=== PATIENT | female | born 1990 | race Caucasian/White ===

== ENCOUNTER 2017-09-15 18:25 | Emergency (ER) | payer MEDICAID, SELFPAY ==
--- NOTE | 2017-09-15 18:47 | HMH.EDUROGF ---
ED Disposition Clinical Impression: First trimester , complicated by Suboxone maintenance, antepartum, UTI (urinary tract infection) Disposition: Home, Self-Care Condition on Discharge: Fair Instructions: DI for Chronic Pain -- Adult Additional Instructions: 1- follow up with subxone clinic untill switched to subutex. 2- pnv daily. 3- call dr perea for care. Prescriptions: Nitrofurantoin Monohyd/M-Cryst [Macrobid 100 mg Capsule] 100 mg PO Q12 #14 cap Referrals: Johnny Shah MD [Staff Physician] - - Critical Care Critical Care Time: No Attestation: On 09/15/17, the high probability of a clinically significant, sudden or life threatening deterioration of the following system(s) required my full and direct attention, intervention and personal management. The time I documented below is in addition to time spent performing reported procedures but includes the following listed in this critical care notation. Medical Decision Making - Medical Records Medical records reviewed: Yes: I reviewed the patient's medical records. Vital Signs: 09/15/17 18:51 Temperature 99.0 F Temperature Source Oral Pulse Rate [Right Brachial] 89 Respiratory Rate 18 Blood Pressure [Right Arm] 153/71 Blood Pressure Mean [Right Arm] 98 Blood Pressure Source [Right Arm] Automatic Cuff Blood Pressure Position [Right Arm] Sitting 02 Sat by Pulse Oximetry 99 Oxygen Delivery Method Room Air - Lab Data Lab Results 09/15/17 18:50: Urine Color Yellow, Urine Appearance Clear, Urine pH 6.0, Ur Specific [place] 1.010, Urine Protein Negative, Urine Glucose (UA) Negative, Urine Ketones Negative, Urine Blood Negative, Urine Nitrate Negative, Urine Bilirubin Negative, Urine Urobilinogen 0.2, Ur Leukocyte Esterase Negative, Urine RBC Occasional, Urine WBC None, Ur Squamous Epith Cells 10-20, Urine Bacteria 1+ 09/15/17 18:50: Urine HCG, Qual Positive - Jayjay Inquiry Pt receiving controlled substance: No Jayjay was queried for this patient: No Medical Decision Making Narrative: Patient was notified that she is positive test. She requested a proof, she would be given a copy of her test result. She is advised to continue Suboxone until she switches Subutex. Dr. Hope is her supervisor opening and picking and she will contact him for care. 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 Onset (ago): day(s) (6 Days) Quality: sharp (Suprapubic. ) Duration: intermittent Relieving factors: none Exacerbating factors: none Sexual activity: yes : unsure Last Menstrual Period: 08/09/17 EDC: 05/16/18 Associated symptoms: denies other symptoms - Related Data : 3 Para: 1 (The patient had 2 D&Cs) A: 2 Previous Rx's Medication Instructions Recorded Nitrofurantoin Monohyd/M-Cryst 100 mg PO Q12 #14 cap 09/15/17 [Macrobid 100 mg Capsule] Allergies Allergy/AdvReac Type Severity Reaction Status Date / Time INGREDIENT: NO KNOWN - NO Allergy Unknown Uncoded 07/19/17 14:50 KNOWN DRUG ALLERGY NKDA Allergy Unknown Uncoded 07/19/17 14:50 [facility] History I have reviewed the patient's past medical history: Yes ROS Obtained: Yes All systems reviewed & no additional complaints Physical Exam - General General appearance: alert, in no apparent distress - Head Head exam: atraumatic, normocephalic, normal inspection - Eye Eye exam: Present: normal appearance, PERRL, EOMI - ENT ENT exam: Present: normal exam, normal oropharynx, mucous membranes moist, TM's normal bilaterally, normal external ear exam - Neck Neck exam: Present: normal inspection, full ROM, trachea midline. Absent: meningismus, lymphadenopathy - Chest Chest inspection: Present: normal inspec
[2017-09-15 18:51] VITALS: BP 153/71; PULSE 89; RESP 18; TEMP 37.2; O2SAT 99; BMI 27.4
--- NOTE | 2017-09-15 18:51 | ED_ITS ---
ED Disposition Clinical Impression: First trimester , complicated by Suboxone maintenance, antepartum, UTI (urinary tract infection) Disposition: Home, Self-Care Condition on Discharge: Fair Instructions: DI for Chronic Pain -- Adult Additional Instructions: 1- follow up with subxone clinic untill switched to subutex. 2- pnv daily. 3- call dr perea for care. Prescriptions: Nitrofurantoin Monohyd/M-Cryst [Macrobid 100 mg Capsule] 100 mg PO Q12 #14 cap Referrals: Johnny Shah MD [Staff Physician] - - Critical Care Critical Care Time: No Attestation: On 09/15/17, the high probability of a clinically significant, sudden or life threatening deterioration of the following system(s) required my full and direct attention, intervention and personal management. The time I documented below is in addition to time spent performing reported procedures but includes the following listed in this critical care notation. Medical Decision Making - Medical Records Medical records reviewed: Yes: I reviewed the patient's medical records. Vital Signs: 09/15/17 18:51 Temperature 99.0 F Temperature Source Oral Pulse Rate [Right Brachial] 89 Respiratory Rate 18 Blood Pressure [Right Arm] 153/71 Blood Pressure Mean [Right Arm] 98 Blood Pressure Source [Right Arm] Automatic Cuff Blood Pressure Position [Right Arm] Sitting 02 Sat by Pulse Oximetry 99 Oxygen Delivery Method Room Air - Lab Data Lab Results 09/15/17 18:50: Urine Color Yellow, Urine Appearance Clear, Urine pH 6.0, Ur Specific [place] 1.010, Urine Protein Negative, Urine Glucose (UA) Negative, Urine Ketones Negative, Urine Blood Negative, Urine Nitrate Negative, Urine Bilirubin Negative, Urine Urobilinogen 0.2, Ur Leukocyte Esterase Negative, Urine RBC Occasional, Urine WBC None, Ur Squamous Epith Cells 10-20, Urine Bacteria 1+ 09/15/17 18:50: Urine HCG, Qual Positive - Jayjay Inquiry Pt receiving controlled substance: No Jayjay was queried for this patient: No Medical Decision Making Narrative: Patient was notified that she is positive test. She requested a proof , she would be given a copy of her test result. She is advised to continue Suboxone until she switches Subutex. Dr. Hope is her route deliverer and she will contact him for care. 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 Onset (ago): day(s) (6 Days) Quality: sharp (Suprapubic. ) Duration: intermittent Relieving factors: none Exacerbating factors: none Sexual activity: yes : unsure Last Menstrual Period: 08/09/17 EDC: 05/16/18 Associated symptoms: denies other symptoms - Related Data : 3 Para: 1 (The patient had 2 D&Cs) A: 2 Previous Rx's Medication Instructions Recorded Nitrofurantoin Monohyd/M-Cryst 100 mg PO Q12 #14 cap 09/15/17 [Macrobid 100 mg Capsule] Allergies Allergy/AdvReac Type Severity Reaction Status Date / Time INGREDIENT: NO KNOWN - NO Allergy Unknown Uncoded 07/19/17 14:50 KNOWN DRUG ALLERGY NKDA Allergy Unknown Uncoded 07/19/17 14:50 [facility] History
[2017-09-15 18:57] LABS: Microscopic, Urine URINE MICROSCOPIC (MICROSCOPIC)
[2017-09-15 18:59] LABS: Appearance,Urine CLEAR (Clear); Bilirubin,Urine Negative (Negative); Blood, Urine Negative (Negative); Color,Urine YELLOW (Yellow); Glucose,Urine (UA) Negative (Negative); Ketones,Urine Negative (Negative); Leukocyte Esterase,Urine Negative (Negative); Nitrate,Urine Negative (Negative); Protein,Urine Negative (Negative); Urobilinogen,Urine 0.2 EU/dl (0.2)
[2017-09-15 19:01] LABS: Urine Pregnancy, HCG Qual. Positive (Negative)
[2017-09-15 19:07] LABS: Bacteria,Urine 1+ /lpf; RBC,Urine Occasional #/hpf (0-3)
[2017-09-15 20:50] VITALS: BP 00/00; PULSE 80; RESP 18; TEMP 36.7; O2SAT 97
== END 2017-09-15 20:50 | disposition home or self-care (01) ==
PROVIDERS: Emergency Provider Emergency Medicine
DX: O99.321 Drug use complicating pregnancy, first trimester (principal); F11.20 Opioid dependence, uncomplicated; N39.0 Urinary tract infection, site not specified
CPT/HCPCS: 81001; 81025; 99281

== ENCOUNTER → 2017-09-19 09:22 | Outpatient (CLI) | payer MEDICAID, SELFPAY ==
[2017-09-19 10:10] LABS: Basophils % 0.3 % (0.1-2.0); Eosinophils # 0.1 K/mm3 (0.0-0.4); Eosinophils % 1.5 % (0.1-12.0); Hematocrit 41.3 % (37.0-47.0); Hemoglobin 13.8 g/dL (12.2-16.2); Lymphocytes # 1.9 K/mm3 (0.7-4.5); Lymphocytes % 34.1 K/mm3 (10-50); Mean Corpuscular HGB Conc 33.5 g/dL (31.8-35.4); Mean Corpuscular Hemoglobin 29.8 pg (27.0-31.2); Mean Platelet Volume 8.7 fl (7.4-10.4); Monocytes # 0.3 K/mm3 (0.1-1.0); Monocytes % 4.9 % (1.7-9.3); Neutrophils # 3.4 K/mm3 (1.8-7.8); Neutrophils % 59.2 % (37.0-80.0); Platelet Count 229 K/mm3 (142-424); Red Blood Count 4.64 M/mm3 (4.20-5.40); Red Cell Distribution Width 13.2 % (11.5-17.5); White Blood Count 5.7 K/mm3 (4.8-10.8)
[2017-09-20 08:21] LABS: HIV Screen 4th Generation wRfx Non Reactive (Non Reactive)
[2017-09-21 06:40] LABS: Hepatitis B Surface Antigen Negative (Negative); Hepatitis C Antibody <0.1 s/co ratio (0.0-0.9); Rapid Plasma Reagin Ab Titer Non Reactive (NonRea<1:1); Rubella Antibodies, IgG 5.76 index (Immune >0.99)
== END ==
PROVIDERS: PCP Internal Medicine Adolescent Medicine; Visit Provider Nurse Practitioner Obstetrics & Gynecology
DX: Z34.90 Encounter for supervision of normal pregnancy, unspecified, unspecified trimester (principal)
CPT/HCPCS: 36415; 85025; 86592; 86703; 86762; 86850; 87340; 87380; G0432

== ENCOUNTER → 2017-09-26 08:51 | Outpatient (CLI) | payer MEDICAID, SELFPAY ==
--- NOTE | 2017-09-26 08:55 | US_ITS ---
US OB transvaginal Ordering Physician: Johnny Shah MD Patient Age: 26 years: Female HISTORY: ITS.REASON: DATES early early OB evaluation. TECHNIQUE: Transvaginal pelvic ultrasound COMPARISON :None FINDINGS Single intrauterine gestation . 2. Early to identify a heart flicker. scar noted lower uterine segment anteriorly Gestational sac to the superior endometrium gestational sac size 1.22 = 5.3 weeks Small Yolk sac is identified measuring 0.27 cm. [place]-rump vaguely identified. CRL = 0.16 cm Cervix long closed Small yolk sac is identified Right ovary 2.6 x 1.4 x 1.7 cm Left ovary 2.8 x 2.55 cm. Only some question a tiny follicles both right left ovary. Trace fluid in cul-de-sac. Noted by technologist IMPRESSION: ...... Single intrauterine gestation.- However to early and small to identify heart flicker.. Gestational sac size of. 5.3 weeks . Ovaries appear satisfactory. Minimal trace fluid at cul-de-sac
== END ==
PROVIDERS: PCP Internal Medicine Adolescent Medicine; Visit Provider Nurse Practitioner Obstetrics & Gynecology
DX: O26.841 Uterine size-date discrepancy, first trimester (principal)
CPT/HCPCS: 76830

== ENCOUNTER → 2017-10-03 09:16 | Outpatient (CLI) | payer MEDICAID, SELFPAY ==
--- NOTE | 2017-10-03 09:22 | US_ITS ---
US OB transvaginal HISTORY: Early OB ultrasound for date ITS.REASON: US OB- Dates ORDERING PHYSICIAN: Johnny Shah MD PATIENT AGE: 26 years COMPARISON: None FINDINGS: An intrauterine gestational sac is present with a pole with a crown-rump length of 0. 66cm correlating to gestational age of 6w4d. On this comparison gestational age of 6 weeks 3 days based on LMP of 08/19/2017 heart tones are present with heart rate of 132 bpm's. Yolk sac identified 0.53 cm. The amnion and chorion have not yet fused. The cervix appears long and closed Adnexa: The ovaries appear normal size with normal flow. No dominant cyst Only small follicles are seen at the periphery of both right left ovary. No well defined corpus luteum cyst. right ovary 2.8 x 1.4 x 2.15 cm left ovary 3.3 x 1.7 x 1.5 cm. IMPRESSION======== : Single viable intrauterine gestation pelvic activity identified and documented 6 weeks 4 days = CRL and average ultrasound age.. Minimal fluid in cul-de-sac noted . Ovaries with normal limits. Tiny follicles noted bilaterally
== END ==
PROVIDERS: PCP Internal Medicine Adolescent Medicine; Visit Provider Nurse Practitioner Obstetrics & Gynecology
DX: O26.841 Uterine size-date discrepancy, first trimester (principal)
CPT/HCPCS: 76830

== ENCOUNTER → 2017-10-10 14:31 | Outpatient (CLI) | payer MEDICAID, SELFPAY ==
--- NOTE | 2017-10-10 14:33 | US_ITS ---
US OB transvaginal Ordering Physician: Johnny Shah MD Patient Age: 26 years: Female HISTORY: ITS.REASON: spotting and cramping in early TECHNIQUE: Single viable intrauterine early gestation. COMPARISON :Spotting cramping. 10/03/2017 early ultrasound. FINDINGS Single progressing viable exiting gestation. Progression of the gestation since the previous 10/03/2017 exam pole is identified with cardiac activity, with yolk sac image . Average ultrasound age = 7 weeks 3 days. Excellent gestational age based on LMP 7 weeks 3 days. Yolk sac 5.2 mm. CRL 1.2 cm = 7 weeks 3 days. Heart rate 146 BPM. And documented Ovaries appear normal in size with no dominant cyst. Right ovary 2.35 x 1.3 x 2.1 cm. Left ovary 3 x 2.4 x 2.5 cm. Scattered small cysts about the margin of both ovaries. Right ovary. A few small scattered follicles at margin of right ovary Note is made of a small amount of fluid the cul-de-sac fluid pocket here measuring up to 2.3 cm length x 0.78 cm x 2.2 cm. IMPRESSION: Single viable progressing intrauterine gestation. 7 weeks 3 days = [place]-Rump Length & Average Ultrasound Age.
== END ==
PROVIDERS: PCP Internal Medicine Adolescent Medicine; Visit Provider Nurse Practitioner Obstetrics & Gynecology
DX: O26.859 Spotting complicating pregnancy, unspecified trimester (principal); O26.899 Other specified pregnancy related conditions, unspecified trimester
CPT/HCPCS: 76830

== ENCOUNTER 2017-10-24 12:05 | Emergency (ER) | payer MEDICAID, SELFPAY ==
[2017-10-24 12:10] VITALS: BP 118/88; PULSE 80; RESP 16; TEMP 37.7; O2SAT 97; BMI 21.9
--- NOTE | 2017-10-24 12:19 | US_ITS ---
US OB transvaginal HISTORY: ITS.REASON: 9 WEEKS PREG BLEEDING ORDERING PHYSICIAN: Mauricio Delarosa MD PATIENT AGE: 26 years COMPARISON: None FINDINGS: An intrauterine gestational sac is present with a pole with a crown-rump length of 2.2 cmcm correlating to gestational age of 8 weeks 6 days. heart tones were not demonstrated. Yolk sac is demonstrated. A small area of fluid echogenicity is present along the lower aspect of the subchorionic area at 6 mm. No adnexal mass. IMPRESSION: Intrauterine gestation once again noted with a crown-rump length of 2.2 cm correlating to gestational age of 8 weeks 6 days. No heart tones however are demonstrated. Nonviable gestation
[2017-10-24 12:43] LABS: Microscopic, Urine URINE MICROSCOPIC (MICROSCOPIC)
[2017-10-24 12:44] LABS: Appearance,Urine CLOUDY (Clear); Blood, Urine Negative (Negative); Color,Urine YELLOW (Yellow); Glucose,Urine (UA) Negative (Negative); Ketones,Urine TRACE (Negative); Leukocyte Esterase,Urine Negative (Negative); Nitrate,Urine Negative (Negative); PH,Urine 6.5 (5.0-8.5); Protein,Urine TRACE (Negative); Urobilinogen,Urine 0.2 EU/dl (0.2)
[2017-10-24 12:46] LABS: Basophils % 0.4 % (0.1-2.0); Eosinophils # 0.1 K/mm3 (0.0-0.4); Eosinophils % 1.9 % (0.1-12.0); Hemoglobin 12.5 g/dL (12.2-16.2); Lymphocytes % 39.2 K/mm3 (10-50); Mean Corpuscular HGB Conc 33.8 g/dL (31.8-35.4); Mean Corpuscular Volume 88.8 fl (81-99); Mean Platelet Volume 8.4 fl (7.4-10.4); Monocytes # 0.2 K/mm3 (0.1-1.0); Monocytes % 4.4 % (1.7-9.3); Neutrophils # 2.7 K/mm3 (1.8-7.8); Platelet Count 209 K/mm3 (142-424); Red Blood Count 4.17 M/mm3 (4.20-5.40); Red Cell Distribution Width 13.1 % (11.5-17.5); White Blood Count 5.1 K/mm3 (4.8-10.8)
[2017-10-24 13:01] LABS: Bacteria,Urine 2+ /lpf; Bilirubin,Urine Negative (Negative); Mucus,Urine 2+ /lpf; Squamous Epithelial Cell,Urine Occasional #/hpf (0-5); WBC,Urine Occasional #/hpf (0-3)
--- NOTE | 2017-10-24 13:03 | HMH.EDPREG ---
ED Disposition Clinical Impression: Incomplete miscarriage Disposition: Home, Self-Care Condition on Discharge: Good Instructions: DI for Miscarriage Additional Instructions: Please call dr. Shah's office and schedule a follow up appointment, at your earliest convenience. Referrals: Johnny Shah MD [Staff Physician] - Forms: Work/School Release Time of Disposition: 13:05 - Critical Care Critical Care Time: No Attestation: On 10/24/17, the high probability of a clinically significant, sudden or life threatening deterioration of the following system(s) required my full and direct attention, intervention and personal management. The time I documented below is in addition to time spent performing reported procedures but includes the following listed in this critical care notation. Medical Decision Making - Medical Records Medical records reviewed: Yes: I reviewed the patient's medical records. - Jayjay Inquiry Pt receiving controlled substance: No Vital Signs: 10/24/17 12:10 10/24/17 13:20 Temperature 99.9 F H 98.9 F Temperature Source Oral Oral Pulse Rate 60 Pulse Rate [Right Radial] 80 Respiratory Rate 16 20 Blood Pressure 114/73 Blood Pressure [Right Arm] 118/88 Blood Pressure Mean [Right Arm] 98 Blood Pressure Source Automatic Cuff Blood Pressure Source [Right Arm] Manual Cuff/ Palpation Blood Pressure Position Sitting Blood Pressure Position [Right Arm] Sitting 02 Sat by Pulse Oximetry 97 Oxygen Delivery Method Room Air Room Air - Lab Data Lab Results 10/24/17 12:25: Urine Color Yellow, Urine Appearance Cloudy, Urine pH 6.5, Ur Specific [place] 1.020, Urine Protein Trace, Urine Glucose (UA) Negative, Urine Ketones Trace, Urine Blood Negative, Urine Nitrate Negative, Urine Bilirubin Negative, Urine Urobilinogen 0.2, Ur Leukocyte Esterase Negative, Urine WBC Occasional, Ur Squamous Epith Cells Occasional, Urine Bacteria 2+, Urine Mucus 2+ 10/24/17 12:33: WBC 5.1, RBC 4.17 L, Hgb 12.5, Hct 37.0, MCV 88.8, MCH 30.0, MCHC 33.8, RDW 13.1, Plt Count 209, MPV 8.4, Neut % (Auto) 54.0, Lymph % (Auto) 39.2, [place] % (Auto) 4.4, Eos % (Auto) 1.9, Baso % (Auto) 0.4, Neut # (Auto) 2.7, Lymph # (Auto) 2.0, [place] # (Auto) 0.2, Eos # (Auto) 0.1, Baso # (Auto) 0.0 10/24/17 12:33: Sodium 140, Potassium 3.8, Chloride 105, Carbon Dioxide 28, Anion Gap 7.5, BUN 5 L, Creatinine 0.47 L, Estimated Creat Clear 156, Estimated GFR 160, Est GFR ( Amer) 194, Glucose 93, Calcium 9.0, Total Bilirubin 0.2, AST 19, ALT 21, Alkaline Phosphatase 78, Total Protein 7.3, Albumin 3.7, Globulin 3.6 H, Albumin/Globulin Ratio 1.0 L, HCG, Quant [id number] Result diagrams: 10/24/17 12:33 10/24/17 12:33 Orders (Tests/Meds): ORDERS Category Date Time Status Urine Culture Stat Micro 10/24/17 12:25 Results - US Data US Images: Pelvis ED US Reviewed: Yes: I have reviewed the patient's US results, I have viewed radiologist's interpretation Findings Narrative: [address] [facility] [address] [place] [address] Ultrasound Report Signed Patient: Kiara Hubbard MR#: [id number] : 1990 Acct:[id number] Age/Sex: 26 / F ADM Date: 10/24/17 Loc: ER Attending Dr: Ordering Physician: Mauricio Delarosa MD Date of Service: 10/24/17 Procedure(s): US OB transvaginal Accession Number(s): [id number] cc: Isidro Baumann MD; Yasir Joya MD~ US OB transvaginal HISTORY: ITS.REASON: 9 WEEKS PREG BLEEDING ORDERING PHYSICIAN: Mauricio Delarosa MD PATIENT AGE: 26 years COMPARISON: None FINDINGS: An intrauterine gestational sac is present with a pole with a crown-rump length of 2.2 cmcm correlating to gestational age of 8 weeks 6 days. heart tones were not demonstrated. Yolk sac is demonstrated. A small area of fluid echogenicity is present along the lower aspect of the subchorionic area at 6 mm. No adnex
--- NOTE | 2017-10-24 13:06 | ED_ITS ---
ED Disposition Clinical Impression: Incomplete miscarriage Disposition: Home, Self-Care Condition on Discharge: Good Instructions: DI for Miscarriage Additional Instructions: Please call dr. Shah's office and schedule a follow up appointment, at your earliest convenience. Referrals: Johnny Shah MD [Staff Physician] - Forms: Work/School Release Time of Disposition: 13:05 - Critical Care Critical Care Time: No Attestation: On 10/24/17, the high probability of a clinically significant, sudden or life threatening deterioration of the following system(s) required my full and direct attention, intervention and personal management. The time I documented below is in addition to time spent performing reported procedures but includes the following listed in this critical care notation. Medical Decision Making - Medical Records Medical records reviewed: Yes: I reviewed the patient's medical records. - Jayjay Inquiry Pt receiving controlled substance: No Vital Signs: 10/24/17 12:10 10/24/17 13:20 Temperature 99.9 F H 98.9 F Temperature Source Oral Oral Pulse Rate 60 Pulse Rate [Right Radial] 80 Respiratory Rate 16 20 Blood Pressure 114/73 Blood Pressure [Right Arm] 118/88 Blood Pressure Mean [Right Arm] 98 Blood Pressure Source Automatic Cuff Blood Pressure Source [Right Arm] Manual Cuff/ Palpation Blood Pressure Position Sitting Blood Pressure Position [Right Arm] Sitting 02 Sat by Pulse Oximetry 97 Oxygen Delivery Method Room Air Room Air - Lab Data Lab Results 10/24/17 12:25: Urine Color Yellow, Urine Appearance Cloudy, Urine pH 6.5, Ur Specific [place] 1.020, Urine Protein Trace, Urine Glucose (UA) Negative, Urine Ketones Trace, Urine Blood Negative, Urine Nitrate Negative, Urine Bilirubin Negative, Urine Urobilinogen 0.2, Ur Leukocyte Esterase Negative, Urine WBC Occasional, Ur Squamous Epith Cells Occasional, Urine Bacteria 2+, Urine Mucus 2 + 10/24/17 12:33: WBC 5.1, RBC 4.17 L, Hgb 12.5, Hct 37.0, MCV 88.8, MCH 30.0, MCHC 33.8, RDW 13.1, Plt Count 209, MPV 8.4, Neut % (Auto) 54.0, Lymph % (Auto) 39.2, [place] % (Auto) 4.4, Eos % (Auto) 1.9, Baso % (Auto) 0.4, Neut # (Auto) 2.7 , Lymph # (Auto) 2.0, [place] # (Auto) 0.2, Eos # (Auto) 0.1, Baso # (Auto) 0.0 10/24/17 12:33: Sodium 140, Potassium 3.8, Chloride 105, Carbon Dioxide 28, Anion Gap 7.5, BUN 5 L, Creatinine 0.47 L, Estimated Creat Clear 156, Estimated GFR 160, Est GFR ( Amer) 194, Glucose 93, Calcium 9.0, Total Bilirubin 0.2, AST 19, ALT 21, Alkaline Phosphatase 78, Total Protein 7.3, Albumin 3.7, Globulin 3.6 H, Albumin/Globulin Ratio 1.0 L, HCG, Quant [id number] H Result diagrams: 10/24/17 12:33 10/24/17 12:33 Orders (Tests/Meds): ORDERS Category Date Time Status Urine Culture Stat Micro 10/24/17 12:25 Results - US Data US Images: Pelvis ED US Reviewed: Yes: I have reviewed the patient's US results, I have viewed radiologist's interpretation Findings Narrative: [address] [facility] [address] [place] [address] Ultrasound Report Signed Patient: Kiara Hubbard MR#: [id number] : 1990 Acct:[id number] Age/Sex: 26 / F ADM Date: 10/24/17 Loc: ER Attending Dr: Ordering Physician: Mauricio Delarosa MD Date of Service: 10/24/17 Procedure(s): US OB transvagin
[2017-10-24 13:20] VITALS: BP 114/73; PULSE 60; RESP 20; TEMP 37.2; O2SAT 99
[2017-10-24 13:21] LABS: Anion Gap 7.5 mEq/L (5-15); Carbon Dioxide 28 mmol/L (21.0-32.0); Chloride 105 mmol/L (98-107); Potassium 3.8 mmoL/L (3.5-5.1); Sodium 140 mmol/L (136-145)
[2017-10-24 13:22] LABS: Alanine Aminotransferase 21 U/L (12-78); Albumin Level 3.7 gm/dL (3.4-5.0); Alkaline Phosphatase 78 U/L (46-116); Aspartate Amino Transferase 19 U/L (15-37); Bilirubin,Total 0.2 mg/dL (0.2-1.0); Blood Urea Nitrogen 5 mg/dL (7-18); Creatinine Clearance Estimated 156 mL/min (0-300); Creatinine,Serum 0.47 mg/dL (0.55-1.02); Estimated Glomerular Filt Rate 160 ml/min (>60); GFR (African American) 194 ML/MIN (>60); Globulin 3.6 gm/dl (1.3-3.2); Glucose 93 mg/dL (74-106); Total Protein,Serum 7.3 gm/dL (6.4-8.2)
== END 2017-10-24 13:20 | disposition home or self-care (01) ==
PROVIDERS: Emergency Provider Emergency Medicine; PCP Internal Medicine Adolescent Medicine
DX: O03.4 Incomplete spontaneous abortion without complication (principal); F17.210 Nicotine dependence, cigarettes, uncomplicated
CPT/HCPCS: 76830; 80053; 81001; 84702; 85025; 87086; 99283

== ENCOUNTER 2017-10-25 10:42 | Day surgery (SDC) | payer MEDICAID, SELFPAY ==
[2017-10-25] VITALS (10 sets, daily range): BP systolic 103–135; BP diastolic 50–83; PULSE 60–90; RESP 12–20; TEMP 36.6–36.9; O2SAT 94–100; BMI 21.4
--- NOTE | 2017-10-25 12:35 | P.PN_ITS ---
[facility] Anesthesia Record Part I Intake, IV Amount: 1,400 Estimated blood loss (mL): 100 Urine output (mL): 100 Blood Pressure: 135/83 SaO2: 98 Pulse Rate: 60 Respiratory Rate: 12 Temperature: 97.9 F Patient is:: Awake, Stable Stable to PACU at:: 12:30
--- NOTE | 2017-10-25 12:35 | HMH.ANESII ---
[facility] Anesthesia Record Part II Discharge Time: 13:00 Destination: [facility] PACU nurse assessment reviewed?: Yes Patient Condition:: Good Anesthesia Complications:: None
--- NOTE | 2017-10-25 12:36 | P.PN_ITS ---
[facility] Anesthesia Record Part II Discharge Time: 13:00 Destination: [facility] PACU nurse assessment reviewed?: Yes Patient Condition:: Good Anesthesia Complications:: None
--- NOTE | 2017-10-25 12:37 | P.PN_ITS ---
[facility] Anesthesia Checklist - Structural Data Admitted From: Home Planned Operative Procedure/s: d/e Consent for Planned Operative Procedure(s) Verified: Yes Verified Documents: Surgical Consent - Airway Assessment C-Spine Mobility Assessed: Yes TMJ Mobility Assessed: Yes Dentition: Poor Dentition - Neurological Assessment Level of Consciousness: Awake, Alert - Anesthesia Plan Anesthesia Risk discussed: Yes Anesthesia Plan: Verified ASA Class: II Anesthesia Type: General [facility] Anesthesia HX I have reviewed the patient's past medical history: Yes Medical History: Denies:: Cancer, Diabetes Mellitus Type 1, Diabetes Mellitus Type 2, MRSA, Seizures Other Medical History: Denies: Blood Transfusion Reaction Laterality Cases: Bilateral: Tonsillectomy Amputation: No Fractures: No *Family Hx:: Cancer, Coronary Artery Disease, Heart Attack, Hyperlipidemia, Hypertension, Stroke
--- NOTE | 2017-10-25 13:34 | HMH.OPNOTE ---
Date of procedure: 10/25/17 Pre-op Diagnosis:: Missed Post-op Diagnosis:: Missed Procedure performed:: Dilation and evacuation with [place] suction Surgeon:: Johnny Shah MD CONSUMER ANALYST:: Semaj John Anesthesia: LMA Estimated blood loss (mL): 100 Clinical Note:: She is a 26-year-old lady who is approximately 9-1/2 weeks gestational age. She had some vaginal bleeding ultrasound showed an 8 week size fetus with no heart rate activity. There was no flow. As result of that she was offered dilation and evacuation. Operative findings:: She had an anteverted bulky uterus. Size was consistent with her dates. Operative note:: She was taken to the operating room where LMA anesthesia was found be adequate. She was prepped and draped in the normal sterile fashion in the lithotomy position. A weighted speculum was placed in the vagina and the anterior lip of the cervix was grasped with a tenaculum. [place] dilators were then used to dilate the cervix to approximately 9 mm. A 9 mm [place] curved suction curette was then used to evacuate the uterine contents. This is followed by a gentle curettage with a medium curette. She tolerated the procedure well and was taken to the recovery room in excellent condition. All sponge and instrument counts were correct. The estimated blood loss was approximately 100 cc. Condition: stable Disposition: PACU Specimens:: Products of conception Complications:: None
--- NOTE | 2017-10-25 13:37 | P.OP_ITS ---
Date of procedure: 10/25/17 Pre-op Diagnosis:: Missed Post-op Diagnosis:: Missed Procedure performed:: Dilation and evacuation with [place] suction Surgeon:: Johnny Shah MD DIRECTOR INSTITUTION:: Semaj John Anesthesia: LMA Estimated blood loss (mL): 100 Clinical Note:: She is a 26-year-old lady who is approximately 9-1/2 weeks gestational age. She had some vaginal bleeding ultrasound showed an 8 week size fetus with no heart rate activity. There was no flow. As result of that she was offered dilation and evacuation. Operative findings:: She had an anteverted bulky uterus. Size was consistent with her dates. Operative note:: She was taken to the operating room where LMA anesthesia was found be adequate. She was prepped and draped in the normal sterile fashion in the lithotomy position. A weighted speculum was placed in the vagina and the anterior lip of the cervix was grasped with a tenaculum. [place] dilators were then used to dilate the cervix to approximately 9 mm. A 9 mm [place] curved suction curette was then used to evacuate the uterine contents. This is followed by a gentle curettage with a medium curette. She tolerated the procedure well and was taken to the recovery room in excellent condition. All sponge and instrument counts were correct. The estimated blood loss was approximately 100 cc. Condition: stable Disposition: PACU Specimens:: Products of conception Complications:: None
--- NOTE | 2017-10-25 13:37 | PC.NURSE ---
10/25/17 Pt awake/LMA out at 1235. Resp easy/reg/ no prob noted.
== END 2017-10-25 13:40 | disposition home or self-care (01) ==
LOC: OR 10:43
PROVIDERS: PCP Internal Medicine Adolescent Medicine; Visit Provider Nurse Practitioner Obstetrics & Gynecology
PROC: (CPT 59820; principal; 2017-10-25 12:00)
DX: O02.1 Missed abortion (principal)
CPT/HCPCS: 59820; 96374

== ENCOUNTER 2020-10-25 12:43 | Outpatient (CLI) | payer MEDICAID, SELFPAY ==
[2020-10-25 13:05] VITALS: BMI 26.9
[2020-10-25 13:07] VITALS: BP 118/77; PULSE 77; RESP 18; TEMP 36.7; O2SAT 100; BMI 26.9
[2020-10-25 13:10] LABS: Microscopic, Urine URINE MICROSCOPIC (MICROSCOPIC)
[2020-10-25 13:12] LABS: Appearance,Urine SL CLOUDY (Clear); Bilirubin,Urine Negative (Negative); Blood, Urine Negative (Negative); Color,Urine YELLOW (Yellow); Glucose,Urine (UA) Negative (Negative); Ketones,Urine Negative (Negative); Leukocyte Esterase,Urine Negative (Negative); Nitrate,Urine Negative (Negative); Protein,Urine Negative (Negative); Specific Gravity, Urine 1.025 (1.005-1.030); Urobilinogen,Urine 0.2 EU/dl (0.2)
[2020-10-25 13:23] LABS: Barbiturates Screen,Urine Negative ng/ml (<200)
[2020-10-25 13:24] LABS: Benzodiazepines Screen,Urine Negative ng/ml (<200)
[2020-10-25 13:25] LABS: Amphetamine/Metha Screen,Urine Negative ng/ml (<1000); Cannabinoid Screen,Urine Positive ng/ml (<50)
[2020-10-25 13:26] LABS: Bacteria,Urine 1+ /lpf; Cocaine Screen,Urine Negative ng/ml (<300); Methadone Screen,Urine Negative ng/ml (<300); Squamous Epithelial Cell,Urine 20-50 #/hpf (0-5)
[2020-10-25 13:27] LABS: Opiate Screen,Urine Negative ng/ml (<300)
[2020-10-25 13:28] LABS: Phencyclidine Screen,Urine Negative ng/ml (<25)
== END 2020-10-25 13:51 | disposition home or self-care (01) ==
LOC: OBOUT 12:47 → OB 12:48
PROVIDERS: PCP Internal Medicine Adolescent Medicine; Visit Provider Obstetrics & Gynecology
DX: O26.859 Spotting complicating pregnancy, unspecified trimester (principal); O26.899 Other specified pregnancy related conditions, unspecified trimester; Z34.90 Encounter for supervision of normal pregnancy, unspecified, unspecified trimester
CPT/HCPCS: 59025; 80305; 81001; G0463

== ENCOUNTER 2020-10-27 15:35 | Emergency (ER) | payer MEDICAID, SELFPAY ==
[2020-10-27 15:50] VITALS: BP 157/79; PULSE 98; RESP 14; TEMP 36.6; O2SAT 99; BMI 27.3
--- NOTE | 2020-10-27 16:25 | HMH.EDUTC ---
[facility] [place] Impression: Encounter for laboratory testing for COVID-19 virus Disposition: Home, Self-Care Condition on Discharge: Good Instructions: DI for COVID-19 (Suspected or Confirmed ), Preventing the Spread of Coronavirus Discharge Instructions Additional Instructions: You were tested for today for COVID19 your test result should be back in the next 24-48 hours, you may call to the [facility] to see if your test results are back in the next 48 hours [phone] [facility] hours are 9am-9pm You was given a handout with instructions for Self Quarantine and Self isolation for while you wait on test results and what to do if they are positive If you are positive the Health Dept will be contacting you also Referrals: Isidro Baumann MD [Primary Care Provider] - Time of Disposition: 16:30 Medical Decision Making - Jayjay Inquiry Pt receiving controlled substance: No Jayjay was queried for this patient: No Vital Signs: 10/27/20 15:50 Temperature 97.8 F Temperature Source Tympanic Pulse Rate [Right] 98 H Respiratory Rate 14 Blood Pressure [Right Arm] 157/79 H Blood Pressure Mean [Right Arm] 105 Blood Pressure Source [Right Arm] Automatic Cuff Blood Pressure Position [Right Arm] Sitting 02 Sat by Pulse Oximetry 99 Oxygen Delivery Method Room Air Orders (Tests/Meds): ORDERS Category Date Time Status Covid-19 Nasal PCR ([facility]) Routine Lab 10/27/20 15:55 [place] [facility] [place] - General Stated complaint: covid test Time Seen by Provider: 10/27/20 16:25 Mode of Arrival: Ambulatory Source of Information: Patient Limitations: No Limitations Description of Symptoms (Recalled from Triage Doc. by RN): pt has a slight cough. dr wanted her to get tested for covid before her appointment. HEENT Symptoms (Recalled from RN notes): No Resp Symptoms (Recalled from RN notes): Yes (cough) Skin Symptoms (Recalled from RN notes): No MS Symptoms (Recalled from RN notes): No Functional Status (Recalled from RN notes): na - History of Present Illness Provider Complaint: Patient states that she is 37wks OB States that her OBGYN wanted her to get tested for COVID before they could see her for her appointment State that she has seasonal allergies and has had a little cough Denies known exposure and denies fever - Related Data Home Medications Medication Instructions Recorded Confirmed buprenorphine HCl 8 mg sublingual 8 mg SUBLINGUAL BID tab 09/19/17 10/25/17 tablet Vit Calc,Iron,Folic [Kpn] 1 tab PO QHS 10/24/17 10/25/17 Allergies Allergy/AdvReac Type Severity Reaction Status Date / Time No Known Allergies Allergy Verified 10/27/20 15:59 - Worker's Comp Is this a Worker's Comp case?: No [facility] History - Hepatitis A Screen Drug use history?: No High risk sexual behaviors?: No History of sexually transmitted infection?: No Currently employed?: No Childcare worker?: No Do you have indoor plumbing?: Yes Do you have electricity?: Yes Attestation statement:: This patient has been screened for Hepatitis A risk factors. I have reviewed the patient's past medical history: Yes Medical History: Reports:: Anxiety, Asthma, Depression Denies:: Cancer, Diabetes Mellitus Type 1, Diabetes Mellitus Type 2, MRSA, Seizures Other Medical History: Denies: Blood Transfusion Reaction Comment: ITP, rare blood disordered Laterality Cases: Bilateral: Tonsillectomy Other Surgeries: Yes: Appendectomy, Amputation: No Fractures: No Comment: gallbladder, T&A, D&C, bone marrow, endoscopy colonscopy - Social History Smoking Status: Current every day smoker Tobacco Type: cigarettes # Packs/Day (cigarettes): 1 #Yrs smoked (if former smoker): 10 Alcohol Intake: never Substance Use Type: denies use, marijuana Occupational Status: employed Housing: house Household Members: family - Psychiatric History Pschychiatric History:: Reports:: Anxiety, Depression Family Hx:: Cancer, Coronary Artery Disease,
[2020-10-27 16:51] VITALS: BP 148/86; PULSE 89; RESP 14; TEMP 36.6
== END 2020-10-27 16:52 | disposition home or self-care (01) ==
PROVIDERS: Emergency Provider Nurse Practitioner; PCP Internal Medicine Adolescent Medicine
DX: U07.1 COVID-19 (principal); Z3A.37 37 weeks gestation of pregnancy; F41.8 Other specified anxiety disorders; F17.210 Nicotine dependence, cigarettes, uncomplicated
CPT/HCPCS: 99202; G0463; U0003

== ENCOUNTER → 2021-01-06 23:01 | Outpatient (CLI) | payer MEDICAID, SELFPAY | PROVIDERS: PCP Internal Medicine Adolescent Medicine; Visit Provider Emergency Medicine | DX: Z20.822 Contact with and (suspected) exposure to COVID-19 (principal) | CPT/HCPCS: U0003 ==